=== PATIENT | male | born 1990 | race African-American/Black ===

== ENCOUNTER → 2016-11-18 | Outpatient (CLI) | payer OTHER | LOC: RAD 17:51 | PROVIDERS: ATTEND Internal Medicine | DX: C81.12 Nodular sclerosis Hodgkin lymphoma, intrathoracic lymph nodes (principal) | CPT/HCPCS: 78815; A9552 ==

== ENCOUNTER → 2016-11-28 | Outpatient (CLI) | payer OTHER | LOC: RAD 16:13 | PROVIDERS: ATTEND Internal Medicine | DX: I26.99 Other pulmonary embolism without acute cor pulmonale (principal); R07.9 Chest pain, unspecified; R06.02 Shortness of breath | CPT/HCPCS: 71275 ==

== ENCOUNTER 2016-11-30 05:02 | Emergency (ER) | payer OTHER ==
[2016-11-30 05:35] LABS: ABSOLUTE EOSINOPHILS # (AUTO) 0.1 10^3/uL (0.0-0.6); ABSOLUTE LYMPHOCYTES (AUTO) 2.5 10^3/uL (0.5-4.7); ABSOLUTE MONOCYTES (AUTO) 0.9 10^3/uL (0.1-1.4); ABSOLUTE NEUT (AUTO) 6.4 10^3/uL (1.7-8.2); BASOPHILS % (AUTO) 0.1 % (0-2); EOSINOPHILS % (AUTO) 0.9 % (0-6); HEMATOCRIT 33.2 % (37.9-51.0); HEMOGLOBIN 11.6 g/dL (13.5-17.0); HGB HCT DIFFERENCE 1.6; LYMPHOCYTES % (AUTO) 25.5 % (13-45); MEAN CORPUSCULAR HEMOGLOBIN 32.4 pg (27.0-33.4); MEAN CORPUSCULAR HGB CONC 34.9 g/dL (32.0-36.0); MEAN CORPUSCULAR VOLUME 93 fl (80-97); MONOCYTES % (AUTO) 9.1 % (3-13); RED BLOOD COUNT 3.58 10^6/uL (4.35-5.55); RED CELL DISTRIBUTION WIDTH 16.6 % (11.5-14.0); SEGMENTED NEUTROPHILS % (AUTO) 64.4 % (42-78); WHITE BLOOD COUNT 9.9 10^3/uL (4.0-10.5)
[2016-11-30 05:50] LABS: PROTHROMBIN TIME 15.1 SEC (11.4-15.4)
[2016-11-30 05:52] LABS: ALANINE AMINOTRANSFERASE 34 U/L (21-72); ALBUMIN 3.9 g/dL (3.5-5.0); ALKALINE PHOSPHATASE 88 U/L (38-126); ANION GAP 14 (5-19); ASPARTATE AMINO TRANSFERASE 22 U/L (17-59); BILIRUBIN,TOTAL 0.4 mg/dL (0.2-1.3); BLOOD UREA NITROGEN 11 mg/dL (7-20); CALCIUM 9.1 mg/dL (8.4-10.2); CARBON DIOXIDE 25 mmol/L (22-30); CHLORIDE 99 mmol/L (98-107); CREATINE KINASE 90 U/L (55-170); CREATININE RESULT 0.87 mg/dL (0.52-1.25); GLUCOSE 101 mg/dL (75-110); POTASSIUM 3.3 mmol/L (3.6-5.0); SODIUM 138.2 mmol/L (137-145); TOTAL PROTEIN 7.1 g/dL (6.3-8.2)
[2016-11-30 06:05] LABS: CREATINE KINASE MB < 0.22 ng/mL (<4.55); TROPONIN I < 0.012 ng/mL
--- NOTE | 2016-11-30 06:22 | ER Document Report ---
ED General <BRANDY SWEENEY - Last Filed: 11/30/16 06:27> - General Time seen by provider: 06:11 Mode of Arrival: Ambulatory Information source: Patient TRAVEL OUTSIDE OF THE [place]. IN LAST 30 DAYS: No - HPI Onset: Other - see HPI note Pain Level: 4 <ANIYAEN FOREMANINE - Last Filed: 11/30/16 07:29> - General Chief Complaint: Rib Pain Stated Complaint: TROUBLE BREATHING Notes: Patient is a 26 year old female presenting to the emergency department with complaints of left rib pain. Patient states that it hurts to breath. Patient states he cannot lay flat because his pain is increased. Patient states he feels more short of breath when he does any activity. Patient's PCP is Dr. Pandey. Patient had a CT scan completed yesterday for this symptom. Patient was started on Xarelto yesterday. Patient has the prescription bottle and is instructed to take a 15 mg dose x2 per day with food for 21 days. Then take 20 mg x1 per day for 6 months. Patient states that he has a history of non- hodgkins lymphoma and is currently in remission. Patient is on chronic pain medication; patient states he takes 2 oxycodone 10 mg every 6 hours with no relief from the pain. Patient's results from the CT scan results were shared with patient showing a pulmonary embolism and pulmonary infarct. Patient understood that he has already been started on the correct medication at the right dose. Patient's chest x-ray showed no abnormalities. Patient's potassium level was low today; patient takes potassium supplements and was encouraged to intake potassium in his diet as well. Patient's questions were answered at this time. (IGNACIO BURKS) - Related Data Allergies/Adverse Reactions: No Known Allergies Allergy (Verified 08/25/16 19:53) Past Medical History - General Information source: Patient - Social History Smoking Status: Never Smoker Cigarette use (# per day): No Chew tobacco use (# tins/day): No Frequency of alcohol use: None Drug Abuse: None Family History: Reviewed & Not Pertinent Patient has suicidal ideation: No Patient has homicidal ideation: No Malignancy Medical History: Reports Hx Lymphoma - non-hodgkins lymphoma, in remission now - Immunizations Hx Diphtheria, Pertussis, Tetanus Vaccination: Yes <IGNACIO BURKS - Last Filed: 11/30/16 07:29> Review of Systems - Review of Systems Constitutional: No symptoms reported EENT: No symptoms reported Cardiovascular: No symptoms reported Respiratory: See HPI, Hurts to breathe, Short of breath Gastrointestinal: No symptoms reported Genitourinary: No symptoms reported Male Genitourinary: No symptoms reported Musculoskeletal: No symptoms reported Skin: No symptoms reported Hematologic/Lymphatic: No symptoms reported Neurological/Psychological: No symptoms reported -: Yes All other systems reviewed and negative <IGNACIO BURKS - Last Filed: 11/30/16 07:29> Physical Exam - Vital signs Interpretation: Normal - General General appearance: Appears well, Alert In distress: Mild - HEENT Head: Normocephalic, Atraumatic Eyes: Normal Pupils: PERRL Mucous membranes: Moist - Respiratory Respiratory status: No respiratory distress Chest status: Nontender Breath sounds: Other - shallow breathing due to lung pain Chest palpation: Normal - Cardiovascular Rhythm: Regular Heart sounds: Normal auscultation Murmur: No - Abdominal Inspection: Normal Distension: No distension Bowel sounds: Normal Tenderness: Nontender Organomegaly: No organomegaly - Back Back: Normal, Nontender - Extremities General upper extremity: Normal inspection, Nontender, Normal ROM, Normal strength. No: Edema General lower extremity: Normal inspection, Nontender, Normal ROM, Normal strength. No: Edema - Neurological Neuro grossly intact: Yes Cognition: Normal Orientation: AAOx4 [place] Coma Scale Eye Opening: Spontaneous [place] Coma Scale Verbal: Oriented [place] Coma Scale Motor: Obeys Commands Mike Coma Scale Total: 15 Speech: Normal - Psychological Associated symptoms: Normal affect, Normal mood - Skin Skin Temperature: Warm Skin Moisture: Dry <IGNACIO BURKS - Last Filed: 11/30/16 07:29> - Vital signs Vitals: Pulse Ox 98 11/30/16 05:35 Course - Laboratory Result Diagrams: 11/30/16 05:25 11/30/16 05:25 - Diagnostic Test Radiology reviewed: Image reviewed - CXR--NAD - EKG Interpretation by Oh EKG shows normal: Sinus rhythm, [place], Intervals, QRS Complexes, ST-T Waves Rate: Normal - 90 Rhythm: NSR <BRANDY SWEENEY - Last Filed: 11/30/16 06:27> - Laboratory Result Diagrams: 11/30/16 05:25 11/30/16 05:25 <IGNACIO BURKS - Last Filed: 11/30/16 07:29> - Vital Signs Vital signs: Temp Pulse Resp BP Pulse Ox 98.7 F 88 13 124/80 100 11/30/16 07:03 11/30/16 07:03 11/30/16 07:03 11/30/16 07:03 11/30/16 07:03 - Laboratory Laboratory results interpreted by me: 11/30/16 11/30/16 05:25 05:25 RBC 3.58 L Hgb 11.6 L Hct 33.2 L RDW 16.6 H Plt Count 125 L Potassium 3.3 L Discharge <BRANDY SWEENEY - Last Filed: 11/30/16 06:27> <IGNACIO BURKS - Last Filed: 11/30/16 07:29> - Discharge Clinical Impression: Pulmonary embolus with infarction Qualifiers: Pulmonary embolism type: other Chronicity: acute Acute cor pulmonale presence: without acute cor pulmonale Qualified Code(s): I26.99 - Other pulmonary embolism without acute cor pulmonale Condition: Stable Disposition: HOME, SELF-CARE Additional Instructions: CT scan yesterday showed pulmonary embolus in the left lower lobe with probable lung infarction. That area of injured lung is causing the pain when you breathe. You were prescribed Xarelto yesterday which you should take every 12 hours with food for 21 days, then switch to 20 mg daily for 6 months. Your potassium level was a little low, so you should increase potassium in your diet along with the potassium tablets to take. Follow-up with Dr. Pandey. RETURN TO THE EMERGENCY ROOM IF ANY NEW OR WORSENING SYMPTOMS. Referrals: MARLENE PANDEY MD [Primary Care Provider] - Follow up in 1 week Scribe Attestation: 11/30/16 06:26 I personally performed the services described in the documentation, reviewed and edited the documentation which was dictated to the scribe in my presence, and it accurately records my words and actions. (BRANDY SWEENEY) Scribe Documentation - Scribe Written by Scribe:: Ignacio Burks 11/30/16 7:00 acting as scribe for :: Caty <IGNACIO BURKS - Last Filed: 11/30/16 07:29>
[2016-11-30 07:05] VITALS: BP 124/80
--- NOTE | 2016-11-30 08:23 | EKG REPORT ---
SEVERITY:- NORMAL ECG - SINUS RHYTHM : Confirmed by: Lex Hernandez MD 30-Nov-2016 08:22:48
== END 2016-11-30 07:03 | disposition home or self-care (01) ==
LOC: ER 05:02
DX: I26.99 Other pulmonary embolism without acute cor pulmonale (principal); R07.81 Pleurodynia; Z85.72 Personal history of non-Hodgkin lymphomas; Z79.02 Long term (current) use of antithrombotics/antiplatelets
CPT/HCPCS: 36415; 71020; 80053; 82550; 82553; 84484; 85025; 85610; 93005; 93010; 99284

== ENCOUNTER 2016-12-02 19:52 | Emergency (ER) | payer OTHER ==
--- NOTE | 2016-12-02 20:04 | ER Document Report ---
ED Medical Screen (RME) - General Stated Complaint: LEFT SIDE PAIN Time seen by provider: 20:02 Notes: Patient states that he has a blood clot in his left lung, is a cancer patient and is being seen by Dr. Alanis. Is having increased pain to that left lung and shortness of breath. Dr. Alonso notified. I have greeted and performed a rapid initial assessment of this patient. A comprehensive ED assessment and evaluation of the patient, analysis of test results and completion of the medical decision making process will be conducted by additional ED providers. TRAVEL OUTSIDE OF THE U[place] IN LAST 30 DAYS: No - Related Data Allergies/Adverse Reactions: No Known Allergies Allergy (Verified 08/25/16 19:53) Past Medical History - Past Medical History Cardiac Medical History: Denies: Hx Coronary Artery Disease, Hx Heart Attack, Hx Hypertension Pulmonary Medical History: Denies: Hx Asthma, Hx Bronchitis, Hx COPD, Hx Pneumonia Neurological Medical History: Denies: Hx Cerebrovascular Accident, Hx Seizures Malignancy Medical History: Reports Hx Lymphoma - non-hodgkins lymphoma, in remission now Musculoskeltal Medical History: Denies Hx Arthritis - Immunizations Hx Diphtheria, Pertussis, Tetanus Vaccination: Yes Physical Exam - Vital signs Vitals: Temp Pulse Resp BP Pulse Ox 98.2 F 100 16 112/70 100 12/02/16 19:57 12/02/16 19:57 12/02/16 19:57 12/02/16 19:57 12/02/16 19:57 Course - Vital Signs Vital signs: Temp Pulse Resp BP Pulse Ox 98.2 F 100 16 112/70 100 12/02/16 19:57 12/02/16 19:57 12/02/16 19:57 12/02/16 19:57 12/02/16 19:57
[2016-12-02] MEDS ORDERED: HYDROMORPHONE HCL INJ/PF 2 MG/ML AMPULE IV ONE (20:38)
[2016-12-02] MEDS ORDERED: ONDANSETRON HCL INJ/PF 4 MG/2 ML SDV IV ONE (20:38)
--- NOTE | 2016-12-02 20:39 | ER Document Report ---
ED Respiratory Problem - General Mode of Arrival: Ambulatory Information source: Patient TRAVEL OUTSIDE OF THE [place] IN LAST 30 DAYS: No - HPI Similar symptoms previously: Yes Recently seen / treated by doctor: Yes <ESTELLE THORNTON - Last Filed: 12/02/16 22:09> <SUPRIYA BRADSHAW - Last Filed: 12/02/16 23:07> - General Chief Complaint: Shortness Of Breath Stated Complaint: LEFT SIDE PAIN Notes: Patient is a 26-year-old male that presents to the emergency department today with complaints of pain with breathing. Patient was diagnosed with a pulmonary embolism a few days ago and he was started on Xarelto. Patient is here for pain control. Patient states he was taking 10 mg of oxycodone, he called his doctor who told him to increase this to 20 mg of oxycodone but the patient states this is not helping his pain. (ESTELLE THORNTON) - Related Data Allergies/Adverse Reactions: No Known Allergies Allergy (Verified 12/02/16 20:06) Past Medical History - General Information source: Patient, ON LICENSE OF [facility] Records - Social History Smoking Status: Never Smoker Cigarette use (# per day): No Chew tobacco use (# tins/day): No Frequency of alcohol use: None Drug Abuse: None Lives with: Family Family History: Reviewed & Not Pertinent - Past Medical History Cardiac Medical History: Reports: Hx Pulmonary Embolism Malignancy Medical History: Reports Hx Lymphoma - non-hodgkins lymphoma, in remission now Surgical Hx: Negative - Immunizations Hx Diphtheria, Pertussis, Tetanus Vaccination: Yes <ESTELLE THORNTON - Last Filed: 12/02/16 22:09> Review of Systems - Review of Systems Constitutional: No symptoms reported EENT: No symptoms reported Cardiovascular: No symptoms reported Respiratory: See HPI, Hurts to breathe, Short of breath Gastrointestinal: No symptoms reported Genitourinary: No symptoms reported Male Genitourinary: No symptoms reported Musculoskeletal: No symptoms reported Skin: No symptoms reported Hematologic/Lymphatic: No symptoms reported Neurological/Psychological: No symptoms reported -: Yes All other systems reviewed and negative <ESTELLE THORNTON - Last Filed: 12/02/16 22:09> Physical Exam - Vital signs Interpretation: Normal - General General appearance: Appears well, Alert - HEENT Head: Normocephalic, Atraumatic Eyes: Normal Pupils: PERRL - Respiratory Respiratory status: No respiratory distress Chest status: Tender - Left lateral tenderness to palpation Breath sounds: Normal Chest palpation: Normal - Cardiovascular Rhythm: Regular Heart sounds: Normal auscultation Murmur: No - Abdominal Inspection: Normal Distension: No distension Bowel sounds: Normal Tenderness: Nontender Organomegaly: No organomegaly - Back Back: Normal, Nontender - Extremities General upper extremity: Normal inspection, Nontender, Normal color, Normal ROM , Normal temperature General lower extremity: Normal inspection, Nontender, Normal color, Normal ROM , Normal temperature, Normal weight bearing. No: Magda's sign - Neurological Neuro grossly intact: Yes Cognition: Normal Orientation: AAOx4 [place] Coma Scale Eye Opening: Spontaneous [place] Coma Scale Verbal: Oriented [place] Coma Scale Motor: Obeys Commands Mike Coma Scale Total: 15 Speech: Normal Motor strength normal: LUE, RUE, LLE, RLE Sensory: Normal - Psychological Associated symptoms: Normal affect, Normal mood - Skin Skin Temperature: Warm Skin Moisture: Dry Skin Color: Normal <SUPRIYA BRADSHAW - Last Filed: 12/02/16 23:07> - Vital signs Vitals: Temp Pulse Resp BP Pulse Ox 98.2 F 100 16 112/70 100 12/02/16 19:57 12/02/16 19:57 12/02/16 19:57 12/02/16 19:57 12/02/16 19:57 Course - Laboratory Result Diagrams: 12/02/16 20:58 12/02/16 20:58 <ESTELLE THORNTON - Last Filed: 12/02/16 22:09> - Laboratory Result Diagrams: 12/02/16 20:58 12/02/16 20:58 - Diagnostic Test Radiology reviewed: Reports reviewed <SUPRIYA BRADSHAW - Last Filed: 12/02/16 23:07> - Re-evaluation Re-evalutation: 12/02/16 Patient improved after Dilaudid. Patient was discussed with Dr. Alonso from hematology/oncology would like to keep the patient on his current blood thinner. Blood work and chest x-ray within normal limits for this patient with his diagnosis of pulmonary embolus and lung infarction. Patient will be discharged home with a prescription for Dilaudid. Return immediately if any worsening or concerning symptoms. Stable for discharge. (SUPRIYA BRADSHAW ) - Vital Signs Vital signs: Temp Pulse Resp BP Pulse Ox 98.3 F 100 20 106/69 100 12/02/16 22:51 12/02/16 19:57 12/02/16 22:51 12/02/16 22:51 12/02/16 22:51 - Laboratory Laboratory results interpreted by me: 12/02/16 12/02/16 12/02/16 20:58 20:58 20:58 RBC 3.85 L Hgb 12.3 L Hct 35.6 L RDW 15.9 H PT 17.7 H APTT 42.1 H Carbon Dioxide 32 H Discharge <ESTELLE THORNTON - Last Filed: 12/02/16 22:09> <SUPRIYA BRADSHAW - Last Filed: 12/02/16 23:07> - Discharge Clinical Impression: Pulmonary embolus with infarction Qualifiers: Pulmonary embolism type: other Chronicity: unspecified Acute cor pulmonale presence: without acute cor pulmonale Qualified Code(s): I26.99 - Other pulmonary embolism without acute cor pulmonale Left-sided back pain Qualifiers: Back pain location: thoracic back pain Chronicity: acute Qualified Code(s): M54.6 - Pain in thoracic spine Condition: Stable Disposition: HOME, SELF-CARE Prescriptions: Hydromorphone HCl [Dilaudid 2 mg Tablet] 1 - 2 mg PO TIDP PRN #20 tablet PRN Reason: Referrals: MARLENE MURRIETA MD [Primary Care Provider] - 12/05/16 Scribe Attestation: 12/02/16 23:07 I personally performed the services described in the documentation, reviewed and edited the documentation which was dictated to the scribe in my presence, and it accurately records my words and actions. (SUPRIYA BRADSHAW) Scribe Documentation - Scribe Written by Renée:: Renée Brice, 12/02/2016 2211 acting as scribe for :: Cecilio <ESTELLE THORNTON - Last Filed: 12/02/16 22:09>
[2016-12-02 21:09] LABS: VENOUS BLOOD BASE EXCESS 2.3 mmol/L; VENOUS BLOOD HCO3 28.8 mmol/L (20-32); VENOUS BLOOD PCO2 51.1 mmHg (35-63); VENOUS BLOOD PH 7.37 (7.30-7.42)
[2016-12-02 21:23] LABS: ANION GAP 13 (5-19); BLOOD UREA NITROGEN 14 mg/dL (7-20); CALCIUM 10.2 mg/dL (8.4-10.2); CARBON DIOXIDE 32 mmol/L (22-30); CHLORIDE 99 mmol/L (98-107); CREATININE RESULT 0.84 mg/dL (0.52-1.25); GLUCOSE 104 mg/dL (75-110); SODIUM 143.6 mmol/L (137-145)
[2016-12-02 21:27] LABS: ABSOLUTE EOSINOPHILS # (AUTO) 0.1 10^3/uL (0.0-0.6); ABSOLUTE LYMPHOCYTES (AUTO) 2.5 10^3/uL (0.5-4.7); BASOPHILS % (AUTO) 0.3 % (0-2); HEMATOCRIT 35.6 % (37.9-51.0); HEMOGLOBIN 12.3 g/dL (13.5-17.0); HGB HCT DIFFERENCE 1.3; LYMPHOCYTES % (AUTO) 29.2 % (13-45); MEAN CORPUSCULAR HEMOGLOBIN 31.9 pg (27.0-33.4); MEAN CORPUSCULAR HGB CONC 34.6 g/dL (32.0-36.0); MEAN CORPUSCULAR VOLUME 92 fl (80-97); MONOCYTES % (AUTO) 11.1 % (3-13); RED BLOOD COUNT 3.85 10^6/uL (4.35-5.55); RED CELL DISTRIBUTION WIDTH 15.9 % (11.5-14.0); SEGMENTED NEUTROPHILS % (AUTO) 58.4 % (42-78); WHITE BLOOD COUNT 8.6 10^3/uL (4.0-10.5)
[2016-12-02 21:44] LABS: PROTHROMBIN TIME 17.7 SEC (11.4-15.4)
[2016-12-02 21:45] LABS: PARTIAL THROMBOPLASTIN TIME 42.1 SEC (23.5-35.8)
[2016-12-02 22:59] VITALS: BP 106/69
== END 2016-12-02 22:57 | disposition home or self-care (01) ==
LOC: ER 19:52
DX: I26.99 Other pulmonary embolism without acute cor pulmonale (principal); M54.6 Pain in thoracic spine; R06.02 Shortness of breath; R52 Pain, unspecified; Z79.899 Other long term (current) drug therapy; Z79.01 Long term (current) use of anticoagulants
CPT/HCPCS: 99285; 96374; 96375; 36415; 85025; 85610; 85730; 80048; 82803; 71010; J1170; J2405

== ENCOUNTER → 2016-12-08 | Outpatient (CLI) | payer OTHER | LOC: RAD 19:41 | PROVIDERS: ATTEND Internal Medicine | DX: R51 Headache (principal); C81.12 Nodular sclerosis Hodgkin lymphoma, intrathoracic lymph nodes | CPT/HCPCS: 70553; A9577 ==

== ENCOUNTER 2016-12-23 08:54 | Outpatient (CLI) | payer OTHER ==
[~2016-12-23 08:54] MED LIST: ACETAMINOPHEN 325 MG TABLET PO PRN; BRENTUXIMAB VEDOTIN IV PRN; DEXAMETHASONE SOD PHOS INJ 10 MG/1 ML VIAL IV PRN; DEXAMETHASONE SOD PHOSPHATE 10 MG in NORMAL SALINE 50 ML IV PRN; DIPHENHYDRAMINE HCL 50 MG in NORMAL SALINE 50 ML IV PRN; DIPHENHYDRAMINE HCL 50 MG/ML VIAL IV PRN; NORMAL SALINE 250 ML IV PRN; NORMAL SALINE IV PRN
[2016-12-23 09:38] VITALS: BP 113/59
== END 2016-12-23 10:53 | disposition home or self-care (01) ==
LOC: II 08:54 → 5TH 09:06 → II 10:53
PROVIDERS: ATTEND Internal Medicine
PROC: 3E0330M Introduction of Antineoplastic, Monoclonal Antibody, into Peripheral Vein, Percutaneous Approach (ICD-10-PCS; principal; 2016-12-23)
PROC: 3E033GC Introduction of Other Therapeutic Substance into Peripheral Vein, Percutaneous Approach (ICD-10-PCS; 2016-12-23)
PROC: 3E033GC Introduction of Other Therapeutic Substance into Peripheral Vein, Percutaneous Approach (ICD-10-PCS; 2016-12-23)
DX: C81.12 Nodular sclerosis Hodgkin lymphoma, intrathoracic lymph nodes (principal); Z51.11 Encounter for antineoplastic chemotherapy
CPT/HCPCS: 96413; 96375; J1200; J1100; J9042; 96367

== ENCOUNTER 2017-01-13 09:08 | Outpatient (CLI) | payer OTHER ==
[~2017-01-13 09:08] MED LIST changes: -DEXAMETHASONE SOD PHOS INJ 10 MG/1 ML VIAL IV PRN; -DIPHENHYDRAMINE HCL 50 MG/ML VIAL IV PRN
[2017-01-13 09:19] VITALS: BP 126/65
== END 2017-01-13 11:20 | disposition home or self-care (01) ==
LOC: II 09:08 → 5TH 09:08 → II 11:20
PROVIDERS: ATTEND Internal Medicine
PROC: 3E0330M Introduction of Antineoplastic, Monoclonal Antibody, into Peripheral Vein, Percutaneous Approach (ICD-10-PCS; principal; 2017-01-13)
PROC: 3E0333Z Introduction of Anti-inflammatory into Peripheral Vein, Percutaneous Approach (ICD-10-PCS; 2017-01-13)
DX: Z51.11 Encounter for antineoplastic chemotherapy (principal); C81.12 Nodular sclerosis Hodgkin lymphoma, intrathoracic lymph nodes
CPT/HCPCS: 96413; 96375; A9270; J1200; J1100; 96366; J9042

== ENCOUNTER 2017-02-03 08:53 | Outpatient (CLI) | payer OTHER ==
[~2017-02-03 08:53] MED LIST changes: +DIPHENHYDRAMINE HCL 50 MG in NORMAL SALINE 50 ML INJ PRN; -DIPHENHYDRAMINE HCL 50 MG in NORMAL SALINE 50 ML IV PRN
[2017-02-03 10:48] VITALS: BP 106/62
== END 2017-02-03 11:25 | disposition home or self-care (01) ==
LOC: II 08:53 → 5TH 09:06 → II 11:25
PROVIDERS: ATTEND Specialist
PROC: 3E0330M Introduction of Antineoplastic, Monoclonal Antibody, into Peripheral Vein, Percutaneous Approach (ICD-10-PCS; principal; 2017-02-03)
PROC: 3E0333Z Introduction of Anti-inflammatory into Peripheral Vein, Percutaneous Approach (ICD-10-PCS; 2017-02-03)
DX: Z51.11 Encounter for antineoplastic chemotherapy (principal); C81.12 Nodular sclerosis Hodgkin lymphoma, intrathoracic lymph nodes
CPT/HCPCS: 96413; 96367; J1200; J1100; 96375; J9042

== ENCOUNTER 2017-02-24 10:02 | Outpatient (CLI) | payer OTHER ==
[~2017-02-24 10:02] MED LIST changes: -DIPHENHYDRAMINE HCL 50 MG in NORMAL SALINE 50 ML INJ PRN; +DIPHENHYDRAMINE HCL 50 MG in NORMAL SALINE 50 ML IV PRN
[2017-02-24 10:34] VITALS: BP 121/66
== END 2017-02-24 12:33 | disposition home or self-care (01) ==
LOC: II 10:02 → 5TH 10:03 → II 12:33
PROVIDERS: ATTEND Internal Medicine
PROC: 3E0330M Introduction of Antineoplastic, Monoclonal Antibody, into Peripheral Vein, Percutaneous Approach (ICD-10-PCS; principal; 2017-02-24)
PROC: 3E0333Z Introduction of Anti-inflammatory into Peripheral Vein, Percutaneous Approach (ICD-10-PCS; 2017-02-24)
PROC: 3E033GC Introduction of Other Therapeutic Substance into Peripheral Vein, Percutaneous Approach (ICD-10-PCS; 2017-02-24)
DX: Z51.11 Encounter for antineoplastic chemotherapy (principal); C81.12 Nodular sclerosis Hodgkin lymphoma, intrathoracic lymph nodes
CPT/HCPCS: 96413; 96375; J1200; J1100; J9042; 96360; 96367

== ENCOUNTER 2017-03-17 10:05 | Outpatient (CLI) | payer OTHER ==
[~2017-03-17 10:05] MED LIST changes: -NORMAL SALINE 250 ML IV PRN
[2017-03-17 10:20] VITALS: BP 103/50
[2017-03-17] MEDS: NORMAL SALINE 250 ML IV PRN ×2 (10:32→10:54)
== END 2017-03-17 13:08 | disposition home or self-care (01) ==
LOC: II 10:05 → 5TH 10:38 → II 13:08
PROVIDERS: ATTEND Internal Medicine
PROC: 3E0330M Introduction of Antineoplastic, Monoclonal Antibody, into Peripheral Vein, Percutaneous Approach (ICD-10-PCS; principal; 2017-03-17)
PROC: 3E0333Z Introduction of Anti-inflammatory into Peripheral Vein, Percutaneous Approach (ICD-10-PCS; 2017-03-17)
PROC: 3E033GC Introduction of Other Therapeutic Substance into Peripheral Vein, Percutaneous Approach (ICD-10-PCS; 2017-03-17)
DX: Z51.11 Encounter for antineoplastic chemotherapy (principal); C81.12 Nodular sclerosis Hodgkin lymphoma, intrathoracic lymph nodes
CPT/HCPCS: 96413; 96367; J1200; J1100; J9042; 96375

== ENCOUNTER → 2017-03-26 | Outpatient (CLI) | payer OTHER ==
--- NOTE | 2017-03-27 09:51 | RADIOLOGY REPORT (SQ) ---
EXAM DESCRIPTION: PET CT SKULL/THIGH COMPLETED DATE/TIME: 03/26/2017 9:55 pm REASON FOR STUDY: HODGKINS LYMPHOMA C81.12 NODULAR SCLEROSIS HODGKIN LYMPHOMA, INTRATHORAC LYMPH COMPARISON: Prior PET-CT 11/18/2016, 08/14/2016, 05/29/2016, 06/05/2015 RADIONUCLIDE AND DOSE: 9.8 mCi F18 FDG The route of agent administration: Intravenous FASTING BLOOD SUGAR: 120 mg/dl CONTRAST TYPE AND DOSE: No CT contrast given. TECHNIQUE: Blood glucose level was verified. Above dose of FDG was injected intravenously. 2-D seg mented attenuation correction images were obtained from the base of the skull to the midthighs. Nonc ontrast CT images were obtained for attenuation correction and fusion with emission images. CT image s were performed without oral or intravenous contrast and are not sensitive for parenchymal lesions. A series of overlapping emission PET images were obtained. Images reviewed and manipulated at [facility] work station by the radiologist. Images stored on PACS. LIMITATIONS: None. FINDINGS: HEAD AND NECK: No areas of abnormal metabolic activity in the soft tissues of the head and neck. CHEST: No areas of abnormal metabolic activity in the chest. ABDOMEN AND PELVIS: No areas of abnormal metabolic activity in the abdomen or pelvis. Expected physi ologic activity is present in the genitourinary system and bowel. PROXIMAL LOWER EXTREMITIES: No areas of abnormal metabolic activity in the soft tissues of the lower extremities. BONES: No abnormal metabolic activity in the visualized skeleton. ADDITIONAL CT FINDINGS: No additional significant findings on the noncontrast CT images. Small mucus or serous retention cyst left maxillary sinus OTHER: Blood pool activity SUV 1.0, liver activity SUV 1.7 IMPRESSION: No hypermetabolic lesions worrisome for recurrent lymphoma. TECHNICAL DOCUMENTATION: JOB ID: [id number]- All Rights Reserved
== END ==
LOC: RAD 19:20
PROVIDERS: ATTEND Internal Medicine
DX: C81.12 Nodular sclerosis Hodgkin lymphoma, intrathoracic lymph nodes (principal)
CPT/HCPCS: 78815; A9552

== ENCOUNTER 2017-04-07 12:54 | Outpatient (CLI) | payer OTHER ==
[~2017-04-07 12:54] MED LIST changes: +NORMAL SALINE 250 ML IV PRN
[2017-04-07 13:10] VITALS: BP 96/58
== END 2017-04-07 15:17 | disposition home or self-care (01) ==
LOC: II 12:54 → 5TH 12:55 → II 15:17
PROVIDERS: ATTEND Internal Medicine
PROC: 3E0330M Introduction of Antineoplastic, Monoclonal Antibody, into Peripheral Vein, Percutaneous Approach (ICD-10-PCS; principal; 2017-04-07)
PROC: 3E0333Z Introduction of Anti-inflammatory into Peripheral Vein, Percutaneous Approach (ICD-10-PCS; 2017-04-07)
PROC: 3E033GC Introduction of Other Therapeutic Substance into Peripheral Vein, Percutaneous Approach (ICD-10-PCS; 2017-04-07)
DX: Z51.11 Encounter for antineoplastic chemotherapy (principal); C81.12 Nodular sclerosis Hodgkin lymphoma, intrathoracic lymph nodes
CPT/HCPCS: 96413; 96367; J1200; J1100; J9042; 96375

== ENCOUNTER 2017-04-28 11:52 | Outpatient (CLI) | payer OTHER ==
[2017-04-28 13:09] VITALS: BP 109/66
== END 2017-04-28 14:07 | disposition home or self-care (01) ==
LOC: II 11:52 → 5TH 11:53 → II 14:07
PROVIDERS: ATTEND Internal Medicine
PROC: 3E0330M Introduction of Antineoplastic, Monoclonal Antibody, into Peripheral Vein, Percutaneous Approach (ICD-10-PCS; principal; 2017-04-28)
PROC: 3E0333Z Introduction of Anti-inflammatory into Peripheral Vein, Percutaneous Approach (ICD-10-PCS; 2017-04-28)
PROC: 3E033GC Introduction of Other Therapeutic Substance into Peripheral Vein, Percutaneous Approach (ICD-10-PCS; 2017-04-28)
DX: Z51.11 Encounter for antineoplastic chemotherapy (principal); C81.12 Nodular sclerosis Hodgkin lymphoma, intrathoracic lymph nodes
CPT/HCPCS: 96413; 96367; 96375; J1200; J1100; J9042

== ENCOUNTER 2017-05-19 09:57 | Outpatient (CLI) | payer OTHER ==
[~2017-05-19 09:57] MED LIST changes: +DIPHENHYDRAMINE HCL 50 MG in NORMAL SALINE 50 ML INJ PRN; -DIPHENHYDRAMINE HCL 50 MG in NORMAL SALINE 50 ML IV PRN; -NORMAL SALINE 250 ML IV PRN
[2017-05-19] MEDS: NORMAL SALINE 250 ML IV PRN ×2 (10:16→11:01)
[2017-05-19 10:21] VITALS: BP 108/50
== END 2017-05-19 11:52 | disposition home or self-care (01) ==
LOC: II 09:57 → 5TH 09:58 → II 11:52
PROVIDERS: ATTEND Internal Medicine
PROC: 3E0330M Introduction of Antineoplastic, Monoclonal Antibody, into Peripheral Vein, Percutaneous Approach (ICD-10-PCS; principal; 2017-05-19)
DX: Z51.11 Encounter for antineoplastic chemotherapy (principal); C81.12 Nodular sclerosis Hodgkin lymphoma, intrathoracic lymph nodes
CPT/HCPCS: 96413; 96367; 96361; J1200; J1100; J9042; 96360; 96374; 96375

== ENCOUNTER 2017-06-09 13:29 | Outpatient (CLI) | payer OTHER ==
[~2017-06-09 13:29] MED LIST changes: -DIPHENHYDRAMINE HCL 50 MG in NORMAL SALINE 50 ML INJ PRN; +DIPHENHYDRAMINE HCL 50 MG in NORMAL SALINE 50 ML IV PRN; +NORMAL SALINE 250 ML IV PRN
[2017-06-09 13:39] VITALS: BP 115/60
== END 2017-06-09 15:26 | disposition home or self-care (01) ==
LOC: II 13:29 → 5TH 13:30 → II 15:26
PROVIDERS: ATTEND Internal Medicine
PROC: 3E0330M Introduction of Antineoplastic, Monoclonal Antibody, into Peripheral Vein, Percutaneous Approach (ICD-10-PCS; principal; 2017-06-09)
PROC: 3E0333Z Introduction of Anti-inflammatory into Peripheral Vein, Percutaneous Approach (ICD-10-PCS; 2017-06-09)
PROC: 3E033GC Introduction of Other Therapeutic Substance into Peripheral Vein, Percutaneous Approach (ICD-10-PCS; 2017-06-09)
DX: Z51.11 Encounter for antineoplastic chemotherapy (principal); C81.12 Nodular sclerosis Hodgkin lymphoma, intrathoracic lymph nodes
CPT/HCPCS: 96413; 96366; 96367; 96375; J1200; J1100; J9042

== ENCOUNTER → 2017-06-26 | Outpatient (CLI) | payer OTHER ==
--- NOTE | 2017-06-27 08:11 | RADIOLOGY REPORT (SQ) ---
EXAM DESCRIPTION: CTA CHEST COMPLETED DATE/TIME: 06/26/2017 1:34 pm REASON FOR STUDY: OTHER PULMONARY EMBOLISM WITHOUT ACUTE COR PULMONALE I26.99 OTHER PULMONARY EMBOL ISM WITHOUT ACUTE COR PULMONALE COMPARISON: 11/28/2016. TECHNIQUE: CT scan of the chest performed using helical scanning technique with dynamic intravenous contrast injection. Images reviewed with lung, soft tissue and bone windows. Reconstructed coronal and sagittal MPR images reviewed. Additional 3 dimensional post-processing performed to develop Maximal Intensity Projection images (IL P). All images stored on PACS. All CT scanners at this facility use dose modulation, iterative reconstruction, and/or weight based d osing when appropriate to reduce radiation dose to as low as reasonably achievable (ALARA). [facility]: Dose Right [facility]: CareDose [facility]: Dose Right [facility]: Teradose 4D [facility]: [place] CONTRAST TYPE AND DOSE: contrast/concentration: Isovue 370.00 mg/ml; Total Contrast Delivered: 65.1 ml; Total Saline Delivered: 110.0 ml Contrast bolus optimized for the pulmonary arteries. Not diagnostic for the aorta. RENAL FUNCTION: BUN 14 creatinine 1.0. RADIATION DOSE: Up-to-date CT equipment and radiation dose reduction techniques were employed. CTDIv ol: 7.6 - 9.4 mGy. DLP: 327 mGy-cm. . LIMITATIONS: None. FINDINGS: LUNGS AND PLEURA: No masses, infiltrates, pneumothorax. Minimal residual scarring in the left lung base. No pleural effusions, calcifications. AORTA AND GREAT VESSELS: No aneurysm. Contrast bolus not optimized for the aorta. HEART: No pericardial effusion. No significant coronary artery calcifications. PULMONARY ARTERIES: No emboli visualized in the main pulmonary arteries or the segmental branches. T here is tapered narrowing of a subsegmental arterial branch to the posterior left lower lobe with isela y small vessels distally. No definitive filling defect. HILAR AND MEDIASTINAL STRUCTURES: No identified masses or abnormal nodes. HARDWARE: None in the chest. UPPER ABDOMEN: No significant findings. Limited exam. THYROID AND OTHER SOFT TISSUES: No masses. No adenopathy. BONES: No acute or significant finding. 3D MIPS: Confirm above findings. OTHER: No other significant finding. IMPRESSION: 1. TAPERED NARROWING OF A SINGLE SUBSEGMENTAL ARTERIAL BRANCH TO THE POSTERIOR LEFT LOWER LOBE. NO D EFINITE FILLING DEFECT. THIS APPEARS TO BE A CHRONIC FINDING AND MAY BE DUE TO PRIOR EMBOLISM WITH S CARRING OF THE VESSEL. VERY MINIMAL SCARRING IN THE LEFT LUNG BASE. OTHERWISE UNREMARKABLE PULMONAR Y CTA. 2. NO OTHER SIGNIFICANT FINDINGS. COMMENT: Quality ID # [id number]: Final reports with documentation of one or more dose reduction techniques (e.g., Automated exposure control, adjustment of the mA and/or kV according to patient size, use of iterative reconstruction technique) TECHNICAL DOCUMENTATION: JOB ID: [id number] [employer]- All Rights Reserved
== END ==
LOC: RAD 12:54
PROVIDERS: ATTEND Internal Medicine
DX: I26.99 Other pulmonary embolism without acute cor pulmonale (principal)
CPT/HCPCS: 71275

== ENCOUNTER 2017-06-30 10:10 | Outpatient (CLI) | payer OTHER ==
[~2017-06-30 10:10] MED LIST changes: +DIPHENHYDRAMINE HCL 50 MG in NORMAL SALINE 50 ML INJ PRN; -DIPHENHYDRAMINE HCL 50 MG in NORMAL SALINE 50 ML IV PRN
[2017-06-30 10:50] VITALS: BP 113/72
== END 2017-06-30 12:11 | disposition home or self-care (01) ==
LOC: 5TH 10:10 → II 10:10
PROVIDERS: ATTEND Internal Medicine
PROC: 3E0330M Introduction of Antineoplastic, Monoclonal Antibody, into Peripheral Vein, Percutaneous Approach (ICD-10-PCS; principal; 2017-06-30)
PROC: 3E033GC Introduction of Other Therapeutic Substance into Peripheral Vein, Percutaneous Approach (ICD-10-PCS; 2017-06-30)
PROC: 3E0333Z Introduction of Anti-inflammatory into Peripheral Vein, Percutaneous Approach (ICD-10-PCS; 2017-06-30)
DX: Z51.11 Encounter for antineoplastic chemotherapy (principal); C81.12 Nodular sclerosis Hodgkin lymphoma, intrathoracic lymph nodes
CPT/HCPCS: 96413; 96367; J1200; J1100; J9035; J9042

== ENCOUNTER 2017-07-21 12:00 | Outpatient (CLI) | payer OTHER, MEDICARE ==
[~2017-07-21 12:00] MED LIST changes: -DIPHENHYDRAMINE HCL 50 MG in NORMAL SALINE 50 ML INJ PRN; +DIPHENHYDRAMINE HCL 50 MG in NORMAL SALINE 50 ML IV PRN
[2017-07-21 12:34] VITALS: BP 100/50
== END 2017-07-21 14:34 | disposition home or self-care (01) ==
LOC: II 12:00 → 5TH 12:05 → II 14:34
PROVIDERS: ATTEND Internal Medicine
PROC: 3E0330M Introduction of Antineoplastic, Monoclonal Antibody, into Peripheral Vein, Percutaneous Approach (ICD-10-PCS; principal; 2017-07-21)
PROC: 3E033GC Introduction of Other Therapeutic Substance into Peripheral Vein, Percutaneous Approach (ICD-10-PCS; 2017-07-21)
PROC: 3E0333Z Introduction of Anti-inflammatory into Peripheral Vein, Percutaneous Approach (ICD-10-PCS; 2017-07-21)
DX: Z51.11 Encounter for antineoplastic chemotherapy (principal); C81.12 Nodular sclerosis Hodgkin lymphoma, intrathoracic lymph nodes
CPT/HCPCS: 96413; 96365; J1200; J1100; J9042; 96367

== ENCOUNTER 2017-08-11 10:54 | Outpatient (CLI) | payer OTHER, MEDICARE ==
[~2017-08-11 10:54] MED LIST changes: +DIPHENHYDRAMINE HCL 50 MG in NORMAL SALINE 50 ML INJ PRN; -DIPHENHYDRAMINE HCL 50 MG in NORMAL SALINE 50 ML IV PRN
[2017-08-11 11:17] VITALS: BP 109/67
== END 2017-08-11 13:14 | disposition home or self-care (01) ==
LOC: II 10:54 → 5TH 11:00 → II 13:14
PROVIDERS: ATTEND Internal Medicine
PROC: 3E0330M Introduction of Antineoplastic, Monoclonal Antibody, into Peripheral Vein, Percutaneous Approach (ICD-10-PCS; principal; 2017-08-11)
PROC: 3E0333Z Introduction of Anti-inflammatory into Peripheral Vein, Percutaneous Approach (ICD-10-PCS; 2017-08-11)
DX: Z51.11 Encounter for antineoplastic chemotherapy (principal); C81.12 Nodular sclerosis Hodgkin lymphoma, intrathoracic lymph nodes
CPT/HCPCS: 96413; 96367; 96375; J1200; J1100; J9042

== ENCOUNTER 2017-09-15 09:50 | Outpatient (CLI) | payer OTHER, MEDICARE ==
[~2017-09-15 09:50] MED LIST changes: -DIPHENHYDRAMINE HCL 50 MG in NORMAL SALINE 50 ML INJ PRN; +DIPHENHYDRAMINE HCL 50 MG in NORMAL SALINE 50 ML IV PRN
== END 2017-09-15 15:45 | disposition home or self-care (01) ==
LOC: II 09:50 → 5TH 09:51 → II 15:45
PROVIDERS: ATTEND Internal Medicine
DX: Z51.11 Encounter for antineoplastic chemotherapy (principal); C81.12 Nodular sclerosis Hodgkin lymphoma, intrathoracic lymph nodes; Z53.8 Procedure and treatment not carried out for other reasons
CPT/HCPCS: J1100; J1200; J9042

== ENCOUNTER 2017-10-13 09:12 | Outpatient (CLI) | payer OTHER, MEDICARE ==
[~2017-10-13 09:12] MED LIST changes: +DIPHENHYDRAMINE HCL 50 MG in NORMAL SALINE 50 ML INJ PRN; -DIPHENHYDRAMINE HCL 50 MG in NORMAL SALINE 50 ML IV PRN
[2017-10-13 10:46] VITALS: BP 100/50
== END 2017-10-13 12:01 | disposition home or self-care (01) ==
LOC: II 09:12 → 5TH 09:14 → II 12:01
PROVIDERS: ATTEND Internal Medicine
PROC: 3E0330M Introduction of Antineoplastic, Monoclonal Antibody, into Peripheral Vein, Percutaneous Approach (ICD-10-PCS; principal; 2017-10-13)
PROC: 3E0333Z Introduction of Anti-inflammatory into Peripheral Vein, Percutaneous Approach (ICD-10-PCS; 2017-10-13)
PROC: 3E033GC Introduction of Other Therapeutic Substance into Peripheral Vein, Percutaneous Approach (ICD-10-PCS; 2017-10-13)
DX: Z51.11 Encounter for antineoplastic chemotherapy (principal); C81.12 Nodular sclerosis Hodgkin lymphoma, intrathoracic lymph nodes
CPT/HCPCS: 96413; 96367; J1200; J1100; J9042

== ENCOUNTER 2017-11-03 08:50 | Outpatient (CLI) | payer OTHER, MEDICARE ==
[2017-11-03 09:09] LABS: ABSOLUTE EOSINOPHILS # (AUTO) 0.1 10^3/uL (0.0-0.6); ABSOLUTE LYMPHOCYTES (AUTO) 1.6 10^3/uL (0.5-4.7); ABSOLUTE MONOCYTES (AUTO) 0.8 10^3/uL (0.1-1.4); ABSOLUTE NEUT (AUTO) 2.3 10^3/uL (1.7-8.2); BASOPHILS % (AUTO) 0.7 % (0-2); EOSINOPHILS % (AUTO) 2.7 % (0-6); HEMATOCRIT 40.2 % (37.9-51.0); LYMPHOCYTES % (AUTO) 33.4 % (13-45); MEAN CORPUSCULAR HGB CONC 34.9 g/dL (32.0-36.0); MEAN CORPUSCULAR VOLUME 97 fl (80-97); MONOCYTES % (AUTO) 15.7 % (3-13); PLATELET COUNT 187 10^3/uL (150-450); RED BLOOD COUNT 4.13 10^6/uL (4.35-5.55); RED CELL DISTRIBUTION WIDTH 14.1 % (11.5-14.0); SEGMENTED NEUTROPHILS % (AUTO) 47.5 % (42-78); TOTAL CELLS COUNTED % (AUTO) 100 %; WHITE BLOOD COUNT 4.8 10^3/uL (4.0-10.5)
[2017-11-03 09:29] VITALS: BP 113/72
== END 2017-11-03 11:19 | disposition home or self-care (01) ==
LOC: II 08:50 → 5TH 09:02 → II 11:19
PROVIDERS: ATTEND Internal Medicine
PROC: 3E0330M Introduction of Antineoplastic, Monoclonal Antibody, into Peripheral Vein, Percutaneous Approach (ICD-10-PCS; principal; 2017-11-03)
PROC: 3E0333Z Introduction of Anti-inflammatory into Peripheral Vein, Percutaneous Approach (ICD-10-PCS; 2017-11-03)
PROC: 3E033GC Introduction of Other Therapeutic Substance into Peripheral Vein, Percutaneous Approach (ICD-10-PCS; 2017-11-03)
DX: Z51.11 Encounter for antineoplastic chemotherapy (principal); C81.12 Nodular sclerosis Hodgkin lymphoma, intrathoracic lymph nodes; C61 Malignant neoplasm of prostate; D70.2 Other drug-induced agranulocytosis
CPT/HCPCS: 36415; 85025; 96413; 96367; J1200; J1100; J9042

== ENCOUNTER 2017-11-24 09:19 | Outpatient (CLI) | payer OTHER, MEDICARE ==
[~2017-11-24 09:19] MED LIST changes: +DIPHENHYDRAMINE HCL 50 MG in NORMAL SALINE 50 ML IV PRN
[2017-11-24 10:55] VITALS: BP 98/42
== END 2017-11-24 12:15 | disposition home or self-care (01) ==
LOC: II 09:19
PROVIDERS: ATTEND Internal Medicine
PROC: 3E0330M Introduction of Antineoplastic, Monoclonal Antibody, into Peripheral Vein, Percutaneous Approach (ICD-10-PCS; principal; 2017-11-24)
PROC: 3E0333Z Introduction of Anti-inflammatory into Peripheral Vein, Percutaneous Approach (ICD-10-PCS; 2017-11-24)
PROC: 3E033GC Introduction of Other Therapeutic Substance into Peripheral Vein, Percutaneous Approach (ICD-10-PCS; 2017-11-24)
DX: Z51.11 Encounter for antineoplastic chemotherapy (principal); C81.12 Nodular sclerosis Hodgkin lymphoma, intrathoracic lymph nodes
CPT/HCPCS: 96413; 96367; 96374; J1200; J1100; J9042; 96375

== ENCOUNTER 2017-12-15 09:55 | Outpatient (CLI) | payer OTHER, MEDICARE ==
[~2017-12-15 09:55] MED LIST changes: -DIPHENHYDRAMINE HCL 50 MG in NORMAL SALINE 50 ML INJ PRN
[2017-12-15 10:24] VITALS: BP 121/81
== END 2017-12-15 12:32 | disposition home or self-care (01) ==
LOC: II 09:55 → 5TH 10:13 → II 12:32
PROVIDERS: ATTEND Internal Medicine
PROC: 3E0430M Introduction of Antineoplastic, Monoclonal Antibody, into Central Vein, Percutaneous Approach (ICD-10-PCS; principal; 2017-12-15)
PROC: 3E0433Z Introduction of Anti-inflammatory into Central Vein, Percutaneous Approach (ICD-10-PCS; 2017-12-15)
PROC: 3E043GC Introduction of Other Therapeutic Substance into Central Vein, Percutaneous Approach (ICD-10-PCS; 2017-12-15)
DX: Z51.11 Encounter for antineoplastic chemotherapy (principal); C81.12 Nodular sclerosis Hodgkin lymphoma, intrathoracic lymph nodes
CPT/HCPCS: 96413; 96367; J1200; J1100; J9042; 96375

== ENCOUNTER → 2018-01-14 | Outpatient (CLI) | payer MEDICARE, OTHER ==
--- NOTE | 2018-01-15 09:48 | RADIOLOGY REPORT (SQ) ---
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 TECHNIQUE: Blood glucose level was verified. Above dose of FDG was injected intravenously. 2-D seg mented attenuation correction images were obtained from the base of the skull to the midthighs. Nonc ontrast CT images were obtained for attenuation correction and fusion with emission images. CT image s were performed without oral or intravenous contrast and are not sensitive for parenchymal lesions. A series of overlapping emission PET images were obtained. Images reviewed and manipulated at [facility] work station by the radiologist. Images stored on PACS. LIMITATIONS: None. FINDINGS: HEAD AND NECK: In the right pre-auricular region, a subcentimeter subcutaneous nodule is p resent difficult to visualize by CT with SUV of 3.2. This could represent a small metabolically acti ve preauricular lymph node. Normal size pharyngeal tonsils are present. However, there is increased uptake of FDG throughout [place] deyer's ring including the tonsils, ranging from 7 to 7.8 SUV. No discrete tonsillar mass. These fi ndings are new compared to prior PET-CT 03/26/2017. This is nonspecific and could be reactive rather than related to recurrent lymphoma. CHEST: No areas of abnormal metabolic activity in the chest. Specifically, no hypermetabolic prevasc ular soft tissue/anterior mediastinal soft tissue. ABDOMEN AND PELVIS: No areas of abnormal metabolic activity in the abdomen or pelvis. Expected physi ologic activity is present in the genitourinary system and bowel. PROXIMAL LOWER EXTREMITIES: No areas of abnormal metabolic activity in the soft tissues of the lower extremities. BONES: No abnormal metabolic activity in the visualized skeleton. ADDITIONAL CT FINDINGS: No additional significant findings on the noncontrast CT images. OTHER: Liver background activity 1.9 SUV. Blood pool background activity 1.3 SUV IMPRESSION: Probable small right preauricular lymph node with SUV of 3.2. Increased activity of the pharyngeal tonsils without discrete tonsillar mass TECHNICAL DOCUMENTATION: JOB ID: [id number] [employer]- All Rights Reserved Reading location - IP/workstation name: [facility]
== END ==
LOC: RAD 17:11
PROVIDERS: ATTEND Internal Medicine
DX: C81.12 Nodular sclerosis Hodgkin lymphoma, intrathoracic lymph nodes (principal)
CPT/HCPCS: 78815; A9552

== ENCOUNTER 2018-09-27 12:24 | Emergency (ER) | payer MEDICARE ==
[2018-09-27] MEDS ORDERED: PENICILLIN V POTASSIUM 500 MG TABLET PO ONE (14:22)
[2018-09-27] MEDS ORDERED: DEXAMETHASONE SOD PHOS INJ 10 MG/1 ML VIAL IM ONE (14:22)
--- NOTE | 2018-09-27 14:25 | ER Document Report ---
HPI - HPI Time Seen by Provider: 09/27/18 14:18 Onset: Other Quality of pain: Achy Severity: Severe - 2 days Pain Level: 5 Context: Patient presents emergency department with complaints of sore throat for the past 2 days. Denies fever vomiting diarrhea. Reports it hurts to swallow but he is able to swallow. Patient is drinking Gatorade. Reports recent exposure to strep via his girlfriend. Associated Symptoms: None, Sore throat Exacerbated by: Food Relieved by: Denies Similar symptoms previously: No Recently seen / treated by doctor: No - REPRODUCTIVE Reproductive: DENIES: : Past Medical History - General Information source: Patient - Social History Smoking Status: Unknown if Ever Smoked Cigarette use (# per day): No - Vapes Frequency of alcohol use: None Drug Abuse: None Lives with: Family Family History: Reviewed & Not Pertinent Patient has suicidal ideation: No Patient has homicidal ideation: No - Past Medical History Cardiac Medical History: Reports: Hx Pulmonary Embolism Denies: Hx Coronary Artery Disease, Hx Heart Attack, Hx Hypertension Pulmonary Medical History: Denies: Hx Asthma, Hx Bronchitis, Hx COPD, Hx Pneumonia Neurological Medical History: Denies: Hx Cerebrovascular Accident, Hx Seizures Renal/ Medical History: Denies: Hx Peritoneal Dialysis Malignancy Medical History: Reports Hx Lymphoma - non-hodgkins lymphoma, in remission now no treatment since 2017. Musculoskeletal Medical History: Denies Hx Arthritis Psychiatric Medical History: Reports: Hx Attention Deficit Hyperactivity Disorder, Hx Bipolar Disorder Surgical Hx: Negative - Immunizations Hx Diphtheria, Pertussis, Tetanus Vaccination: Yes Vertical Provider Document - CONSTITUTIONAL Agree With Documented VS: Yes Exam Limitations: No Limitations General Appearance: WD/WN, No Apparent Distress - INFECTION CONTROL TRAVEL OUTSIDE OF THE [place] IN LAST 30 DAYS: No - HEENT HEENT: Atraumatic, Normocephalic, Pharyngeal Exudate, Pharyngeal Erythema. negative: Conjuctival Injection, Tympanic Membrane Red, Tympanic Membrane Bulging Notes: Patient has good airway swallowing Gatorade without problem no trismus - NECK Neck: Normal Inspection, Supple. negative: Lymphadenopathy-Left, Lymphadenopathy-Right - RESPIRATORY Respiratory: Breath Sounds Normal, No Respiratory Distress - CARDIOVASCULAR Cardiovascular: Regular Rate - MUSCULOSKELETAL/EXTREMETIES Musculoskeletal/Extremeties: MAEW, FROM - NEURO Level of Consciousness: Awake, Alert - DERM Integumentary: Warm, Dry, No Rash Course - Re-evaluation Re-evalutation: 09/27/18 14:36 Patient instructed on plan of care to include steroid injection penicillin. He was instructed on the importance of not sharing his food or drink with family pushing fluids follow-up with primary care provider for concerns. He was instructed to return the emergency department for worsening symptoms or any concerns. - Vital Signs Vital signs: Temp Pulse Resp BP Pulse Ox 98.5 F 86 18 121/72 99 09/27/18 12:40 09/27/18 12:40 09/27/18 12:40 09/27/18 12:40 09/27/18 12:40 Discharge - Discharge Clinical Impression: Sore throat, Tonsillar exudate, Strep throat exposure Condition: Stable Disposition: HOME, SELF-CARE Instructions: Penicillin V K ([facility]), Sore Throat ([facility]), Steroid Medication Injection Additional Instructions: *You have been evaluated for a sore throat, tonsillar exudate, strep throat exposure *Take medication as prescribed *Warm salt water gargles and throat lozenges for comfort *Change toothbrush after two days of antibiotics *Do not let anyone drink/eat after you *Good hand washing *Follow-up with a primary care provider within 1 week for recheck *Return to ED for worsening condition change, needs Prescriptions: Penicillin V Potassium [Penicillin Vk 500 mg Tablet] 500 mg PO BID #20 tablet Forms: Return to Work Referrals: MARLENE MURRIETA MD [Primary Care Provider] - Follow up in 3-5 days
[2018-09-27 14:48] VITALS: BP 129/69
== END 2018-09-27 14:45 | disposition home or self-care (01) ==
LOC: ER 12:24
DX: J02.9 Acute pharyngitis, unspecified (principal); R09.89 Other specified symptoms and signs involving the circulatory and respiratory systems; Z20.818 Contact with and (suspected) exposure to other bacterial communicable diseases; Z85.72 Personal history of non-Hodgkin lymphomas
CPT/HCPCS: 99282; 96372; A9270; J1100

== ENCOUNTER → 2019-10-04 | Outpatient (CLI) | payer OTHER, MEDICARE ==
[2019-10-04 14:34] LABS: ABSOLUTE EOSINOPHILS # (AUTO) 0.1 10^3/uL (0.0-0.6); ABSOLUTE LYMPHOCYTES (AUTO) 1.6 10^3/uL (0.5-4.7); ABSOLUTE MONOCYTES (AUTO) 0.3 10^3/uL (0.1-1.4); ABSOLUTE NEUT (AUTO) 1.3 10^3/uL (1.7-8.2); BASOPHILS % (AUTO) 0.5 % (0-2); EOSINOPHILS % (AUTO) 2.3 % (0-6); HEMATOCRIT 40.5 % (37.9-51.0); HEMOGLOBIN 14.1 g/dL (13.5-17.0); LYMPHOCYTES % (AUTO) 49.8 % (13-45); MEAN CORPUSCULAR HGB CONC 34.9 g/dL (32.0-36.0); MEAN CORPUSCULAR VOLUME 97 fl (80-97); MONOCYTES % (AUTO) 8.6 % (3-13); PLATELET COUNT 121 10^3/uL (150-450); RED BLOOD COUNT 4.16 10^6/uL (4.35-5.55); RED CELL DISTRIBUTION WIDTH 13.4 % (11.5-14.0); SEGMENTED NEUTROPHILS % (AUTO) 38.8 % (42-78); TOTAL CELLS COUNTED % (AUTO) 100 %; WHITE BLOOD COUNT 3.2 10^3/uL (4.0-10.5)
== END ==
LOC: OD 13:01
DX: R06.02 Shortness of breath (principal); C85.90 Non-Hodgkin lymphoma, unspecified, unspecified site
CPT/HCPCS: 36415; 85025

== ENCOUNTER 2020-02-20 11:03 | Emergency (ER) | payer MEDICARE, OTHER ==
[2020-02-20 11:08] VITALS: BP 114/72
--- NOTE | 2020-02-20 11:24 | ER Document Report ---
HPI - HPI Time Seen by Provider: 02/20/20 11:15 Notes: 29-year-old male presents emergency room complaints of right hand swelling x3 days. 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 No trauma to right hand. Patient is right-hand dominant. States he does find relief when he takes Tylenol. States in the morning it hurts to move his right hand, swelling gets worse throughout the day. has not tried any icing or heat. Denies any prior injury fracture to his hand. No PCP at this time. Denies fevers, chills, chest pain,palpitations, shortness of breath, dyspnea, nausea, vomiting, diarrhea, abdominal pain, hematuria, neck pain, weakness, bowel or bladder dysfunction, saddle anesthesia, numbness or tingling in bilateral upper or lower extremities equally, muscle paralysis, weakness in bilateral upper or lower extremities equally or rash. REVIEW OF SYSTEMS:reviewed vital signs by RN CONSTITUTIONAL : Denies fever, chills, or sweats. Denies recent illness. EENT: Denies eye, ear, throat, or mouth pain or symptoms. Denies nasal or sin us congestion or discharge. Denies throat, tongue, or mouth swelling or difficulty swallowing. CARDIOVASCULAR: Denies chest pain. Denies palpitations or racing or irregular heart beat. Denies ankle edema. RESPIRATORY: Denies cough, cold, or chest congestion. Denies shortness of breath, difficulty breathing, or wheezing. GASTROINTESTINAL: Denies abdominal pain or distention. Denies nausea, vomiting, or diarrhea. Denies blood in vomitus, stools, or per rectum. Denies black, tarry stools. Denies constipation. GENITOURINARY: Denies difficulty urinating, painful urination, burning, fr equency, blood in urine, or discharge. MUSCULOSKELETAL: reports right hand pain. Denies back or neck pain or stiffness. Denies joint pain or swelling. SKIN: Denies rash, lesions or sores. HEMATOLOGIC : Denies easy bruising or bleeding. LYMPHATIC: Denies swollen, enlarged glands. NEUROLOGICAL: Denies confusion or altered mental status. Denies passing out or loss of consciousness. Denies dizziness or lightheadedness. Denies headache. Denies weakness or paralysis or loss of use of either side. Denies problems with gait or speech. Denies sensory loss, numbness, or tingling. Denies s eizures. PSYCHIATRIC: Denies anxiety or stress. Denies depression, suicidal ideation, or homicidal ideation. ALL OTHER SYSTEMS REVIEWED AND NEGATIVE. Dictation was performed using [employer] voice recognition software PHYSICAL EXAMINATION: GENERAL: Well-appearing, well-nourished and in no acute distress. HEAD: Atraumatic, normocephalic. EYES: Pupils equal round and reactive to light, extraocular movements intact, sclera anicteric, conjunctiva are normal. ENT: Nares patent, oropharynx clear without exudates. Moist mucous membranes. NECK: Normal range of motion, supple without lymphadenopathy LUNGS: Breath sounds clear to auscultation bilaterally and equal. No wheezes rales or rhonchi. HEART: Regular rate and rhythm without murmurs ABDOMEN: Soft, nontender, nondistended abdomen. No guarding, no rebound. No masses appreciated. Musculoskeletal: Normal range of motion, no pitting or edema. No cyanosis. No noted pain with flexion, extension, abduction, adduction of any digits on the right. Full motor and sensory function in [employer]. 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 NEgative Snuffbox tenderness noted on right. Ulnar and radial pulses + 2 BUE equally. DTRs +2 in bilateral upper extremities equally. No deformity noted of hand or wrist bilaterally. Normal flexion, extension, ulnar/radial deviation. Slight swelling to dorsal aspect of right hand from 2nd-4th metacarpals. negative jessica vels sign. No open wounds or drainage from wrist. No vascular compromise. full motor and sensory function with medial, radial and ulnar nerves bilaterally and equally. NEUROLOGICAL: Cranial nerves grossly intact. Normal speech, normal gait. Normal sensory, motor exams PSYCH: Normal mood, normal affect. SKIN: Warm, Dry, normal turgor, no rashes or lesions noted. - REPRODUCTIVE Reproductive: DENIES: : Past Medical History - General Information source: Patient - Social History Smoking Status: Unknown if Ever Smoked Family History: Reviewed & Not Pertinent - Past Medical History Cardiac Medical History: Reports: Hx Pulmonary Embolism Denies: Hx Coronary Artery Disease, Hx Heart Attack, Hx Hypertension Pulmonary Medical History: Denies: Hx Asthma, Hx Bronchitis, Hx COPD, Hx Pneumonia Neurological Medical History: Denies: Hx Cerebrovascular Accident, Hx Seizures Renal/ Medical History: Denies: Hx Peritoneal Dialysis Malignancy Medical History: Reports Hx Lymphoma - non-hodgkins lymphoma, in remission now no treatment since 2017. Musculoskeletal Medical History: Denies Hx Arthritis Psychiatric Medical History: Reports: Hx Attention Deficit Hyperactivity Disorder, Hx Bipolar Disorder - Immunizations Hx Diphtheria, Pertussis, Tetanus Vaccination: Yes Vertical Provider Document - CONSTITUTIONAL Agree With Documented VS: Yes Exam Limitations: No Limitations General Appearance: WD/WN - INFECTION CONTROL TRAVEL OUTSIDE OF THE [place] IN LAST 30 DAYS: No Course - Re-evaluation Re-evalutation: 02/20/20 11:20 Afebrile vital stable no distress. Nurses notes reviewed. Unremarkable clinical exam though noted some swelling to the dorsal aspect of the right hand from the 2nd-4th metacarpal area. No erythema induration warmth to touch. Full range of motion full sensory function. X-ray negative for acute fracture dislocation, bone lesion. Discussed with patient needs to apply heat 20 minutes on 20 minutes off several times a day, alternating Tylenol ibuprofen for pain control, keep elevated. 02/20/20 12:09 Consent by patient given to place right cock up hand splint,. cms intact, sensory motor function intact in bilateral upper extremities prior to splint application fiberglass splint placed without incident. cms intact 20 minutes after splint application. Splint is in good alignment. Bilateral upper extremities with motor and sensory function intact 20 minutes after application. Pt stated that splint felt comfortable.After performing a Medical Screening Examination, I estimate there is LOW risk for OPEN FRACTURE, COMPARTMENT SYNDR OME, DEEP VENOUS THROMBOSIS, ACUTE TENDON RUPTURE, or NEUROVASCULAR INJURY thus I consider the discharge disposition reasonable. I have reevaluated this patient multiple times and no significant life threatening changes are noted. The patient and I have discussed the diagnosis and risks, and we agree with discharging home to closely follow-up with their primary doctor or the referral orthopedist with the understanding that symptoms and presentations can change. We also discussed returning to the Emergency Department immediately if new or worsening symptoms occur. We have discussed the symptoms which are most concerning (e.g., changing or worsening pain, numbness, weakness) that necessitate immediate return - Vital Signs Vital signs: Temp Pulse Resp BP Pulse Ox 97.6 F 75 14 114/72 98 02/20/20 11:07 02/20/20 11:07 02/20/20 11:07 02/20/20 11:07 05/21/20 11:07 Discharge - Discharge Clinical Impression: Swelling of right hand Condition: Stable Disposition: HOME, SELF-CARE Instructions: Ibuprofen (General) ([facility]), Muscle Relaxers ([facility]), Muscle Strain ([facility]), Sprain ([facility]) Additional Instructions: Your x-ray today was negative acute fracture, dislocation, bone lesion. You should take ibuprofen 600 mg every 6 hours as needed for pain. Please return if you have worsening pain and swelling, fever greater than 101, you notice spreading redness from the area, or have any other symptoms that are concerning to you. Please follow-up with biochemistry specialist if your symptoms have not improved in the next 2-3 weeks. Return immediately for any new or worsening symptoms. Follow up with primary care provider, call tomorrow to make followup appointment. Prescriptions: Ibuprofen [Ibu] 600 mg PO Q6HP PRN #20 tablet PRN Reason: Forms: Return to Work Referrals: KENJI MANNING MD [ACTIVE PROVISIONAL STAFF] - Follow up as needed MIKEY IVY MD [Primary Care Provider] - Follow up as needed RASHAAD CARRERO MD [ACTIVE STAFF] - Follow up as needed
--- NOTE | 2020-02-20 12:03 | RADIOLOGY REPORT (SQ) ---
EXAM DESCRIPTION: HAND RIGHT 3 VIEWS IMAGES COMPLETED DATE/TIME: 02/20/2020 11:48 am REASON FOR STUDY: R hand pain/swelling x 3 days, no trauma COMPARISON: None. EXAM PARAMETERS: NUMBER OF VIEWS: Three views. TECHNIQUE: AP, lateral and oblique radiographic images acquired of the right hand. LIMITATIONS: None. FINDINGS: MINERALIZATION: Normal. BONES: No acute fracture or dislocation. No worrisome bone lesions. No significant osteophytes. JOINTS: No erosions. No ej-articular osteopenia. No chondrocalcinosis. SOFT TISSUES: No swelling. No calcifications. OTHER: No other significant finding. IMPRESSION: NEGATIVE STUDY OF THE RIGHT HAND. NO ACUTE POST-TRAUMATIC CHANGES. NO EXPLANATION FOR PA IN. TECHNICAL DOCUMENTATION: JOB ID: [id number] 2010 [employer]- All Rights Reserved Reading location - IP/workstation name: [email or web address]
== END 2020-02-20 12:15 | disposition home or self-care (01) ==
LOC: ER 11:03
DX: M79.89 Other specified soft tissue disorders (principal); M79.641 Pain in right hand; Z85.72 Personal history of non-Hodgkin lymphomas
CPT/HCPCS: 99283